=== PATIENT | male | born 1975 | race Caucasian/White ===

== ENCOUNTER 2021-09-10 18:12 | Emergency (ER) | payer OTHER ==
[~2021-09-10 18:12] MED LIST: AUGMENTIN 875-1 EACH PO
[2021-09-10] MEDS ORDERED: BACITRACIN3.5 GM OP (19:28)
[2021-09-10] MEDS ORDERED: HYDROCODONE-AC1 EACH PO (19:44)
== END 2021-09-10 20:00 | disposition home or self-care (01) ==
LOC: ER1 18:12
DX: T22.011A Burn of unspecified degree of right forearm, initial encounter (principal); T31.0 Burns involving less than 10% of body surface; Z23 Encounter for immunization; F17.210 Nicotine dependence, cigarettes, uncomplicated; X58.XXXA Exposure to other specified factors, initial encounter; X12.XXXA Contact with other hot fluids, initial encounter
CPT/HCPCS: 90471; 90715; 96374; 96375; 99283; J1170; J1885; J2270; J2405

== ENCOUNTER 2022-05-26 12:06 | Emergency (ER) | payer OTHER ==
[~2022-05-26 12:06] MED LIST changes: +BACITRACIN3.5 GM OP; +HYDROCODONE-AC1 EACH PO
[2022-05-26 14:22] LABS: HEMOGLOBIN 16.6 gm/dl (14.0-17.5); RED BLOOD COUNT 5.62 M/UL (4.20-5.50); WHITE BLOOD COUNT 9.3 K/UL (4.5-11.0)
[2022-05-26 14:44] LABS: BUN/CREATININE RATIO 24 (0-10)
[2022-05-26] MEDS ORDERED: IBUPROFEN600 MG PO (18:54)
[2022-05-26] MEDS ORDERED: CYCLOBENZAPRINE10 MG PO (18:54)
== END 2022-05-26 19:10 | disposition home or self-care (01) ==
LOC: ER1 12:06
PROVIDERS: Emergency Medicine
DX: N20.0 Calculus of kidney (principal); R00.0 Tachycardia, unspecified; I10 Essential (primary) hypertension; F17.200 Nicotine dependence, unspecified, uncomplicated; Z87.442 Personal history of urinary calculi
CPT/HCPCS: 80053; 81001; 82962; 85025; 85379; 96374; 96375; 99284; Q9967